=== PATIENT | female | born 2000 | race Two or more races ===

== ENCOUNTER → 2024-07-11 | Emergency (ER) | payer OTHER ==
[~2024-07-11] VITALS: Ht 167.6 cm; Wt 63.5 kg
[~2024-07-11] MED LIST: CEPHALEXIN500 MG PO; IBUPROFEN600 MG PO; IRON18 M1 PO
[2024-07-11 20:59] VITALS: BP 109/68; O2SAT 99
== END | disposition left against medical advice (07) ==
LOC: ER 20:30 → EMR PED 20:50 → ER 20:50
DX: Z53.21 Procedure and treatment not carried out due to patient leaving prior to being seen by health care provider (principal)